=== PATIENT | female | born 1990 | race Two or more races ===

== ENCOUNTER 2024-12-14 14:42 | Emergency (ER) | payer MEDICAID, SELFPAY ==
[2024-12-14 15:00] VITALS: BP 152/101; PULSE 100; RESP 20; TEMP 36.9; O2SAT 96
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
[2024-12-14] MEDS: IBUPROFEN TAB 400 MG TABLET 800 MG PO (15:30)
[2024-12-14] MEDS: ACETAMINOPHEN 500 MG TABLET 1000 MG PO (15:31)
[2024-12-14 16:55] VITALS: BP 122/76; PULSE 69; RESP 18; TEMP 36.6; O2SAT 98
== END 2024-12-14 16:56 | disposition home or self-care (01) ==
PROVIDERS: Emergency Provider Family Medicine; PCP Family Medicine
DX: S80.02XA Contusion of left knee, initial encounter (principal); S80.01XA Contusion of right knee, initial encounter; S20.219A Contusion of unspecified front wall of thorax, initial encounter; S40.021A Contusion of right upper arm, initial encounter; S50.01XA Contusion of right elbow, initial encounter; S80.212A Abrasion, left knee, initial encounter; S80.211A Abrasion, right knee, initial encounter; S50.311A Abrasion of right elbow, initial encounter; S50.811A Abrasion of right forearm, initial encounter; S40.211A Abrasion of right shoulder, initial encounter; V49.9XXA Car occupant (driver) (passenger) injured in unspecified traffic accident, initial encounter
CPT/HCPCS: 71045; 73030; 73060; 73080; 99283; A9270